=== PATIENT | female | born 1930 | race Caucasian/White ===

== ENCOUNTER 2019-02-06 19:34 | Inpatient (IN) ==
[2019-02-06] MEDS ORDERED: methylPREDNISolone SOD SUC 125 MG/2 ML VIAL IV STA (20:02)
[2019-02-06] MEDS ORDERED: VANCOMYCIN INJ 1,000 MG in SODIUM CHLORIDE 0.9% 250 ML IV STA (20:08)
[2019-02-06 20:22] LABS: Basophils % 0.2 % (0.0-0.8); Hematocrit 53.7 VOL% (35.7-47.0); Immature Granulocytes % 0.7 %; Immature Granulocytes Absolute 0.13 #; Lymphocytes # 1.7 10*3/uL (1.4-4.0); Lymphocytes % 9.2 % (21.3-54.2); Mean Corpuscular HGB Conc 30.7 GM/DL (32-36); Mean Corpuscular Volume 95.2 FL (87-102); Mean Platelet Volume 14.5 FL (9.6-12.0); Monocytes % 7.5 % (1.7-12.7); Neutrophils % 82.4 % (38.7-73.9); Platelet Count 91 T/CUMM (130-400); Red Blood Count 5.64 MC/CUMM (3.8-5.5); Red Cell Distribution Width 17.6 % (9.3-17.3); White Blood Count 18.6 T/CUMM (4-12)
[2019-02-06 20:23] LABS: Hemoglobin 16.5 GM/DL (12.0-16.0)
[2019-02-06] MEDS ORDERED: ALBUTEROL NEB SOLN 5 MG/ML 20 ML/BOTTLE RESP TX SCH (20:30)
[2019-02-06 20:41] LABS: INR 1.1; PT Patient Result 11.8 SECS (9.6-12.2); Partial Thromboplastin Time 24.9 SECS (20.8-36.0)
[2019-02-06 20:47] LABS: Albumin 2.3 G/DL (3.4-5.0); Bilirubin,Total 1.1 MG/DL (0.2-1.0); CKMB % 0.1 %; Calcium 8.2 MG/DL (8.5-10.1); Total Protein 6.9 G/DL (6.4-8.3)
[2019-02-06 20:50] LABS: Troponin I 1.16 NG/ML (0.00-0.045)
[2019-02-06] MEDS ORDERED: SODIUM CHLORIDE 0.9% 2,000 ML IV STA (20:59)
[2019-02-07] MEDS: LORazepam 2 MG/1 ML VIAL IV PRN ×3 (08:18→20:31)
[2019-02-07] MEDS: MORPHINE 4 MG/1 ML VIAL IV PRN ×3 (10:46→20:28)
[2019-02-08] MEDS: MORPHINE 4 MG/1 ML VIAL IV PRN ×4 (01:10→15:46)
[2019-02-08] MEDS: LORazepam 2 MG/1 ML VIAL IV PRN ×4 (01:13→18:42)
[2019-02-08 20:29] VITALS: BP 47/36
== END 2019-02-09 12:40 | disposition expired | DRG 871 ==
LOC: EDUNIT# → EDBD → N.ED 19:34 → SUATTDRO 22:22 → N.EDINP 22:22 → N.4E 22:57
PROVIDERS: ADMIT Internal Medicine; ATTEND Internal Medicine